=== PATIENT | female | born 1955 | race Caucasian/White ===

== ENCOUNTER → 2024-08-16 13:37 | Outpatient (REF) | payer MEDICARE, OTHER, SELFPAY ==
[2024-08-16 14:10] LABS: % Basophils 0.5 % (0-2); % Eosinophils 0.2 % (0-6); % Immature Granulocytes 0.5 % (0-0.5); % Lymphocytes 24.6 % (20.5-51.1); % Monocytes 9.5 % (1.7-9.3); % Neutrophils 64.7 % (42.2-75.2); Absolute Lymphocytes 1.4 10^3/uL (1.2-3.4); Absolute Monocytes 0.5 10^3/uL (0.1-0.6); Absolute Neutrophils 3.6 10^3/uL (1.4-6.5); Hematocrit 41.6 % (37.0-47.0); Hemoglobin 14.1 g/dL (12.0-16.0); Mean Corp Hgb Conc. 33.9 g/dL (33.0-37.0); Mean Corpuscular Hgb 30.1 pg (27.0-31.0); Mean Corpuscular Volume 88.9 fL (81.0-99.0); Mean Platelet Volume 8.1 fL (7.4-10.4); Nucleated Red Blood Cells % 0 %; Platelet Count 342 10^3/uL (130-400); Red Blood Cell Count 4.68 10^6/uL (4.20-5.40); Red Cell Dist. Width 13.2 % (11.5-14.5); White Blood Cell Count 5.6 10^3/uL (4.8-10.8)
[2024-08-16 14:37] LABS: ALT (SGPT) 21 U/L (0-35); AST (SGOT) 30 U/L (14-36); Albumin 4.8 g/dl (3.5-5.0); Alkaline Phosphatase 73 U/L (38-126); Amylase 82 U/L (30-110); Blood Urea Nitrogen 14 mg/dl (7-17); Calcium 10.8 mg/dl (8.4-10.2); Carbon Dioxide 25 mmol/L (22-30); Chloride 102 mmol/L (98-107); Glucose 99 mg/dl (70-99); HDL Cholesterol 99 mg/dl; LDL Cholesterol, Calculated 178 mg/dl; Lipase 110 U/L (23-300); Sodium 136 mmol/L (135-145); Total Bilirubin 0.9 mg/dl (0.2-1.3); Total Cholesterol 289 mg/dl (50-199); Total Protein 7.6 g/dl (6.3-8.2); Triglyceride 63 mg/dl (10-149); Very Low Density Lipoprotein 12 mg/dl (0-30); eGFR > 60.00
[2024-08-16 15:05] LABS: TSH Reflex To Free T4 0.67 uIU/ml (0.47-4.68)
== END ==
LOC: REG 13:37
PROVIDERS: ATTENDING PHYSICIAN Internal Medicine
DX: R73.03 Prediabetes (principal); R94.5 Abnormal results of liver function studies; E78.00 Pure hypercholesterolemia, unspecified; R10.9 Unspecified abdominal pain
CPT/HCPCS: 36415; 80053; 80061; 82150; 83690; 84443; 85025

== ENCOUNTER → 2024-08-20 14:44 | Outpatient (REF) | payer MEDICARE, OTHER, SELFPAY | LOC: RAD 14:44 | PROVIDERS: ATTENDING PHYSICIAN Nurse Practitioner Family; FAMILY PHYSICIAN Internal Medicine | DX: R10.9 Unspecified abdominal pain (principal); R14.0 Abdominal distension (gaseous) | CPT/HCPCS: 76700 ==

== ENCOUNTER 2024-08-25 10:12 | Emergency (ER) | payer MEDICARE, OTHER, SELFPAY ==
[2024-08-25 10:13] VITALS: BP 134/68
[2024-08-25 11:44] VITALS: BP 140/81
[2024-08-25 11:46] VITALS: BMI 21.6
--- NOTE | 2024-08-25 11:47 | ED.GENMED ---
History of Present Illness
General
Chief Complaint: Abdominal Pain
Source: patient
Exam Limitations: none
Time Seen by Provider: 08/25/24 11:32
Nursing documentation reviewed up to this point in time: agreed with
History of Present Illness
History of Present Illness:
Patient is a 68-year-old female presenting with approximately 3 weeks of lower abdominal pain associated with loose stools with acute worsening last night. Patient reports initially noticing pain in her left lower abdomen towards the end of July.
She states it occasionally radiates into her left back and sometimes into her right lower abdomen. She has had more frequent loose stools although denies any bloody stools. Patient was seen by her PCP at the end of July and started on a course of
Augmentin for presumed diverticulitis. Patient thinks symptoms got mildly better although now seems to be worsening again. Patient denies any associated fever, chills, dysuria, hematuria, vomiting.
Patient has had normal laboratory analysis, abdominal ultrasound, and negative H. pylori testing with PCP.
Past History
Past History
ED Past Medical History: GERD and Other (Diverticulosis)
ED Past Surgical History: Gynecological (Total hysterectomy)
Social History
Tobacco: Former smoker
Drug: None
Personal:
Living: with family
Employment: Not employed
Family History
Family History: Other
Review of Systems
Review of Systems
Allergies reviewed?: Yes
All Other Systems: ROS reviewed and negative except as documented in HPI and ROS
Phy Exam
Physical Exam
Physical Exam:
Vitals: Patient's vital signs are stable. Afebrile
General: Patient is very well appearing, no acute distress. Nontoxic appearing
Skin: Warm and dry, no rashes or lesions
Head: Normocephalic, atraumatic
Eyes: Sclera nonicteric. EOMs intact. No nystagmus.
Throat: Protecting airway
Neck: Normal ROM, no cervical spine tenderness, no meningismus
Cardiac: Regular rate and rhythm, no murmurs.
Pulm: Normal respiratory effort, no wheezes, rales, rhonchi heard on exam.
Abdomen: Abdomen soft. Very mild left lower quadrant tenderness without rebound tenderness or guarding. No CVA tenderness.
Extremities: No evidence of cyanosis or edema. Palpable DP pulses bilaterally
Neuro: AAOx3. Grossly intact.
Psychiatric: Normal affect.
Course
Orders/Labs/Results
Orders:
Orders
08/25/24 11:44
CT Abd/pelvis W Iv Cont Urgent
Comment:
Reason For Exam: LLQ pain, diarrhea
0.9% Sodium Chloride 1000 ml [Nss] 1,000 ml IV BOLUS
Ketorolac [Toradol] 15 mg IV NOW STA
08/25/24 12:02
Complete Blood Count/With Diff Urgent
Comprehensive Metabolic Panel Urgent
Lipase Urgent
08/25/24 12:13
Urinalysis Reflex To Culture Urgent
Date Specimen was Collected: 08/25/24
Time Specimen was Collected: 12:05
Urine Microscopic Reflex Cult Urgent
Urine Culture Urgent
DALIA Source: U
Specimen Description:
Date Specimen was Collected: 08/25/24
Time Specimen was Collected: 12:05
Abnormal Lab Results
08/25/24 08/25/24
12:02 12:13
Absolute Lymphs (auto) 1.0 L 10^3/uL
(1.2-3.4)
Lymphocytes % 19.3 L %
(20.5-51.1)
Carbon Dioxide 21 L mmol/L
(22-30)
Urine Ketones 3+ A
(Negative)
Ur Occult Blood Reflex 1+ A
(Negative)
Leukocyte Esterase Rfl 1+ A
(Negative)
Urine RBC 3-6 A /HPF
(0-2)
Urine Bacteria (Reflex) Few A
(Negative)
Urine Albumin (Reflex) 1+ A
(Neg - Trace)
08/25/24 12:02
08/25/24 12:02
Vital Signs
Initial and Last Documented VS:
Initial Vital Signs
Temp Pulse Resp BP Pulse Ox
97.4 F 94 16 134/68 96
08/25/24 10:13 08/25/24 10:13 08/25/24 10:13 08/25/24 10:13 08/25/24 10:13
Last Documented Vital Signs
Temp Pulse Resp BP Pulse Ox
97.4 F 74 19 123/62 97
08/25/24 10:13 08/25/24 15:00 08/25/24 15:00 08/25/24 15:09 08/25/24 15:09
MDM/Problems Addressed
Differential Diagnosis Includes:
Not limited to: Diverticulitis, colitis, appendicitis, constipation, cystitis, etc.
MDM/Problems Addressed:
Patient is a 68-year-old female presenting with about one month of left lower abdominal pain which worsened overnight. She has been treated with a course of Augmentin for suspected diverticulitis with minimal improvement. Reportedly negative H.
pylori and lab testing with PCP, as well as abdominal US. Patient afebrile with stable Vital signs on arrival. Physical exam as above. Differential broad at this time. Given symptoms ongoing for about a month � lower suspicion for acute
infectious process. However � will check screening labs and CT abd/pelvis for further evaluation.
Update: labs reviewed. No leukocytosis. Chemistry unremarkable. Urine does not appear clearly infected. CT scan w/ findings of non-specific colitis, although no evidence of acute diverticulitis. Low clinical suspicion for acute infection at this
time given essentially benign abdominal exam and normal laboratory analysis. Patient has significant family history of C. Dif. I do feel we should avoid further antibiotics at this time given no clear source of infection today. Case was discussed
with Regine, Dr. Canseco who agrees with plan. He will attempt to expedite G.I. follow up outpatient. Return precautions discussed. Patient stable for discharge home
Chronic conditions affecting care:
N/A
Acute Exacerbation and/or Progression of Chronic Illness:
N/A
*Radiology
Radiology exam reviewed: preliminary read by ED provider and radiology read reviewed
*Pulse Oximetry
Patient hypoxic: no
*EKG
Interpreted by ED Provider?: NA
*Spd Manager Interpretation
Rate: Spd Manager- N/A
*Critical Care Note
Total Time (30-74mins, 75-104mins- exclusive of procedures): Not Applicable
Data Reviewed
Review of Other/Old Records Reveals: Radiology Studies (Abdominal US 08/20/24)
Patient Management
Discussion with other providers: Lard Renderer
Escalation/DeEscalation of care consider admission/obs:
Admit not indicated
ED Attending Note
-
Portions of this chart may have been created with voice recognition software.� Occasional wrong word or��sound alike� substitutions may have occurred due to the inherent limitations of voice recognition software.
Discharge Plan
Departure
Patient Disposition: Home (Routine Discharge)
Date of Disposition: 08/25/24
Time of Disposition: 15:03
Patient with high blood pressure during this ER visit?: Yes
Condition: Good
Discharge Problem:
Abdominal pain, Colitis
Instructions: Colitis - Discharge instructions, Abdominal pain in adults - ED discharge instructions, BLOOD PRESSURE
Prescriptions:
No Action
amoxicillin-pot clavulanate 1 TABLET tablet
1 tab PO Q12 Qty: 13 0RF
Referrals:
Amanda Duncan MD [Family Provider] - Keep scheduled appt
Kayley Olivas DO [Active] - Next open appointment
Activity Restrictions/Additional Instructions:
RETURN TO THE EMERGENCY DEPARTMENT ANY FEVER, CHILLS, WORSENING ABDOMINAL PAIN, INTRACTABLE NAUSEA/VOMITING, SIGNS OF SEVERE DEHYDRATION, OR ANY OTHER CONCERNS
- As discussed�your lab work showed no acute abnormalities in the emergency department. Your CT scan showed evidence of colitis although no findings of acute diverticulitis. You were given IV fluids, and IV Toradol.
- You should take Tylenol/Motrin as needed for pain. It is important to stay well-hydrated. I would recommend a clear liquid diet for the next 2 days and advance to low fiber as tolerated.
- Call the GI office tomorrow morning for follow-up in office.
Monitor your symptoms closely and return to the emergency department with any acute worsening/new symptoms or any other concerns
Interventions
Interventions:
*Nursing Disposition Last Done: 08/25/24 15:15
AB-Itqfjk-[id number] Assessment Last Done: 08/25/24 11:46
Discharge Date and Time
Discharge Date/Time: 08/25/24 15:47
Print Language: ITALIAN
[2024-08-25 12:00] VITALS: BP 152/136
[2024-08-25 12:11] LABS: % Basophils 0.4 % (0-2); % Immature Granulocytes 0.4 % (0-0.5); % Lymphocytes 19.3 % (20.5-51.1); % Monocytes 8.5 % (1.7-9.3); % Neutrophils 71.4 % (42.2-75.2); Absolute Monocytes 0.4 10^3/uL (0.1-0.6); Absolute Neutrophils 3.6 10^3/uL (1.4-6.5); Hematocrit 40.4 % (37.0-47.0); Mean Corp Hgb Conc. 34.7 g/dL (33.0-37.0); Mean Corpuscular Hgb 30.6 pg (27.0-31.0); Mean Corpuscular Volume 88.4 fL (81.0-99.0); Mean Platelet Volume 8.3 fL (7.4-10.4); Nucleated Red Blood Cells % 0 %; Platelet Count 354 10^3/uL (130-400); Red Blood Cell Count 4.57 10^6/uL (4.20-5.40); Red Cell Dist. Width 13.3 % (11.5-14.5)
[2024-08-25] MEDS: TORADOL 15 MG IV (12:14)
[2024-08-25] MEDS: NSS 1000 IV (12:14)
[2024-08-25 12:21] LABS: ALT (SGPT) 17 U/L (0-35); AST (SGOT) 23 U/L (14-36); Albumin 4.6 g/dl (3.5-5.0); Alkaline Phosphatase 69 U/L (38-126); Blood Urea Nitrogen 10 mg/dl (7-17); Calcium 10.2 mg/dl (8.4-10.2); Carbon Dioxide 21 mmol/L (22-30); Chloride 103 mmol/L (98-107); Estimated Creatinine Clearance 73 ml/min; Glucose 95 mg/dl (70-99); Lipase 123 U/L (23-300); Potassium 4.7 mmol/L (3.5-5.1); Sodium 135 mmol/L (135-145); Total Bilirubin 0.7 mg/dl (0.2-1.3); Total Protein 7.2 g/dl (6.3-8.2); eGFR > 60.00
[2024-08-25 12:37] LABS: Urine Albumin 1+ (Neg - Trace); Urine Bilirubin Negative (Negative); Urine Character Clear (Clear); Urine Color Yellow; Urine Glucose Negative (Negative); Urine Ketone 3+ (Negative); Urine Leukocyte 1+ (Negative); Urine Nitrite Negative (Negative); Urine Occult Blood 1+ (Negative); Urine Urobilinogen Negative (Neg - 1+)
[2024-08-25 12:56] LABS: Urine Bacteria Few (Negative); Urine White Cell 0-2 /HPF (0-5)
[2024-08-25 15:09] VITALS: BP 123/62
== END 2024-08-25 15:47 | disposition home or self-care (01) ==
LOC: EMR 10:12
PROVIDERS: Physician Assistant; EMERGENCY PHYSICIAN Emergency Medicine; FAMILY PHYSICIAN Internal Medicine
DX: R10.32 Left lower quadrant pain (principal); R19.7 Diarrhea, unspecified; K52.9 Noninfective gastroenteritis and colitis, unspecified; R03.0 Elevated blood-pressure reading, without diagnosis of hypertension; K57.30 Diverticulosis of large intestine without perforation or abscess without bleeding; Z87.891 Personal history of nicotine dependence; Z88.1 Allergy status to other antibiotic agents; Z88.2 Allergy status to sulfonamides
CPT/HCPCS: 99284; 96361; 96374; 74177; 80053; 81003; 81015; 83690; 85025; 87086; Q9967

== ENCOUNTER 2024-08-29 06:29 | Day surgery (SDC) | payer MEDICARE, OTHER, SELFPAY | END 2024-08-29 15:49 | disposition home or self-care (01) | LOC: GI 06:29 | PROVIDERS: ATTENDING PHYSICIAN Internal Medicine | DX: R10.32 Left lower quadrant pain (principal); R11.0 Nausea; K57.30 Diverticulosis of large intestine without perforation or abscess without bleeding; K64.9 Unspecified hemorrhoids | CPT/HCPCS: 45330 ==

== ENCOUNTER → 2025-03-01 08:50 | Outpatient (REF) | payer MEDICARE, OTHER, SELFPAY | LOC: RCS 08:50 | PROVIDERS: ATTENDING PHYSICIAN Nurse Practitioner Family; FAMILY PHYSICIAN Internal Medicine | DX: R00.2 Palpitations (principal) | CPT/HCPCS: 93225; 93226; 93306 ==

== ENCOUNTER → 2025-05-06 10:25 | Outpatient (REF) | payer MEDICARE, OTHER, SELFPAY | LOC: RCS 10:25 | PROVIDERS: ATTENDING PHYSICIAN Nurse Practitioner Family; FAMILY PHYSICIAN Internal Medicine | DX: R00.2 Palpitations (principal); I20.81 Angina pectoris with coronary microvascular dysfunction | CPT/HCPCS: 93017 ==